=== PATIENT | male | born 1960 | race Caucasian/White ===

== ENCOUNTER → 2023-06-18 06:20 | Day surgery (SDC) | payer OTHER, SELFPAY | LOC: GI 06:20 | PROVIDERS: ATTENDING PHYSICIAN Internal Medicine Gastroenterology | DX: Z12.11 Encounter for screening for malignant neoplasm of colon (principal); K64.0 First degree hemorrhoids; K57.30 Diverticulosis of large intestine without perforation or abscess without bleeding; K63.5 Polyp of colon | CPT/HCPCS: 45385; 45380; 88305 ==

== ENCOUNTER → 2023-12-25 06:17 | Day surgery (SDC) | payer OTHER, SELFPAY | LOC: GI 06:17 | PROVIDERS: ATTENDING PHYSICIAN Internal Medicine Gastroenterology | DX: Z12.11 Encounter for screening for malignant neoplasm of colon (principal); D12.3 Benign neoplasm of transverse colon; K57.30 Diverticulosis of large intestine without perforation or abscess without bleeding; K64.0 First degree hemorrhoids; L29.0 Pruritus ani | CPT/HCPCS: 45380; 88305 ==